=== PATIENT | female | born 1985 | race Caucasian/White ===

== ENCOUNTER 2021-12-11 14:56 | Outpatient (CLI) | payer MEDICAID | END 2021-12-11 14:57 | disposition critical access hospital (66) | LOC: EMS 14:56 | DX: T40.411A Poisoning by fentanyl or fentanyl analogs, accidental (unintentional), initial encounter (principal) | CPT/HCPCS: A0425; A0429; A0999 ==

== ENCOUNTER 2021-12-11 15:16 | Observation (INO) | payer MEDICAID ==
--- NOTE | 2021-12-11 15:25 | ED Physician Documentation ---
PD HPI ALTERED MENTAL STATUS - Stated complaint Stated Complaint: OD - History obtained from History obtained from: Patient, EMS - History of Present Illness Timing - onset: How many hours ago (1), Today Timing - duration: Other (The patient's roommate found her on the floor poorly responsive and hypoventilating with snoring sounds. EMS was called. There was a sales representative womens health with tinfoil next to her. She did improve with Narcan on route but still somnolent.) Timing - details: Abrupt onset Quality / character: Unresponsive (with decreased/snoring type breathing.) Associated symptoms: No: Headache, Cough, NVD Contributing factors: Substance abuse (initially was not stating what she took, but then stated she "thought it was fentanyl" but has used before without overdose. Denies intentional overdose.). No: Anticoagulated, Diabetic Basline status: Alert and oriented X 3, Ambulatory Treatment STOVE TENDER: Narcan (with moderate improvement to point of conversant but drowsy on arrival.) Similar symptoms before: Has not had sx before Review of Systems Unable to obtain: AMS, Confused Cardiac: denies: Chest pain / pressure GI: reports: Abdominal Pain (upper). denies: Vomiting Neurologic: denies: Focal weakness, Headache, Head injury PD PAST MEDICAL HISTORY - Past Medical History Cardiovascular: None Respiratory: None Endocrine/Autoimmune: None - Allergies Allergies/Adverse Reactions: Allergies Allergy/AdvReac Type Severity Reaction Status Date / Time No Known Drug Allergies Allergy Verified 12/11/21 15:28 - Social History Does the pt have substance abuse?: Yes Substance Use and Type: Marijuana, Other (fentanyl) PD ED PE NORMAL - Vitals Vital signs reviewed: Yes - General General: Well developed/nourished (but somewhat discheveled on arrival. ). No: Alert and oriented X 3 (person , confused about place, not aware of the time. ) - HEENT HEENT: Atraumatic, Pharynx benign. No: Moist mucous membranes - Neck Neck: Supple, no meningeal sign, No adenopathy - Cardiac Cardiac: No murmur. No: RRR (regular but tachycardic) - Respiratory Respiratory: No respiratory distress, Clear bilaterally - Abdomen Abdomen: Soft, Non tender, Non distended. No: Normal bowel sounds (diminished) - Derm Derm: Normal color, No rash, Other (multiple small skin sores on face, arms without purulence nor abscess. Consider staph infections.) - Extremities Extremities: Normal ROM s pain, No edema, No calf tenderness / cord - Neuro Neuro: No motor deficit, No sensory deficit Eye Opening: To Voice Motor: Localizes to Pain Verbal: Confused GCS Score: 12 Results - Vitals Vitals: Vital Signs - 24 hr 12/11/21 12/11/21 12/11/21 15:20 15:28 15:58 Temperature 36.8 C 36.6 C Heart Rate 113 H 110 H Respiratory 23 20 Rate Blood Pressure 153/104 H 140/90 H O2 Saturation 87 L 94 94 If not protocol 2 2 : Oxygen Flow, liters/minute 12/11/21 12/11/21 12/11/21 16:28 16:30 17:00 Temperature Heart Rate 106 H 90 100 Respiratory 18 16 22 Rate Blood Pressure 130/100 H 130/90 H 132/88 H O2 Saturation 92 98 92 If not protocol 4 4 4 : Oxygen Flow, liters/minute Oxygen O2 Source Nasal cannula Oxygen Flow Rate 2 - Labs Labs: Laboratory Tests 12/11/21 12/11/21 12/11/21 15:53 15:53 15:53 WBC 20.9 H RBC 4.61 Hgb 14.0 Hct 44.0 MCV 95.4 MCH 30.4 MCHC 31.8 L RDW 13.5 Plt Count 238 MPV 8.5 Neut # (Auto) Not Reportable Lymph # (Auto) Not Reportable [place] # (Auto) Not Reportable Eos # (Auto) Not Reportable Baso # (Auto) Not Reportable Absolute Nucleated RBC Not Reportable Total Counted 100 Band Neuts % (Manual) 0 Abnorm Lymph % (Manual) 0 Nucleated RBC % Not Reportable Neutrophils # (Manual) 18.6 H Lymphocytes # (Manual) 2.1 Monocytes # (Manual) 0.2 Eosinophils # (Manual) 0.0 Basophils # (Manual) 0.0 Differential Comment MANUAL DIFFERENTIAL Platelet Estimate NORMAL (130-450,000) Platelet Morphology NORMAL APPEARANCE RBC Morph Micro Appear NORMAL APPEARANCE Sodium 139 Potassium 4.6 Chloride 102 Carbon Dioxide 27 Anion Gap 10.0 BUN 24 H Creatinine 1.2 H Estimated GFR (MDRD) 50 L Glucose 105 H Calcium 9.4 Total Bilirubin 0.5 AST 188 H ALT 156 H Alkaline Phosphatase 115 Total Protein 7.6 Albumin 4.0 Globulin 3.6 Albumin/Globulin Ratio 1.1 Lipase 36 TSH 1.03 Ethyl Alcohol < 5.0 PD MEDICAL DECISION MAKING - ED course Complexity details: re-evaluated patient (patient improves with Narcan but then drowsy and trending lower sats to low 90s when wearing off. Repeat doses x 2 with good effect but then needed to start drip to maintain awakeness. Clearly not heroin as lasting too long. Presumed fentanyl but still lasting long. Concern would be for longer med. ), considered differential, d/w patient Departure - Departure Disposition: ED Place in Observation Clinical Impression: Opioid overdose Qualifiers: Encounter type: initial encounter Injury intent: accidental or unintentional Qualified Code(s): T40.2X1A - Poisoning by other opioids, accidental (unintentional), initial encounter Altered mental status Qualifiers: Altered mental status type: coma Coma depth: unspecified coma depth Qualified Code(s): R40.20 - Unspecified coma Condition: Stable Record reviewed to determine appropriate education?: Yes Discharge Date/Time: 12/11/21 17:47
[2021-12-11] MEDS ORDERED: NALOXONE HCL NASAL SPRAY KIT NAS STA ×2 (15:38→16:54)
[2021-12-11] MEDS ORDERED: NALOXONE 0.4 MG/ML VIAL SUBQ STA (15:40)
[2021-12-11 15:59] LABS: BASOPHILS % (AUTO) 0.3 %; LYMPHOCYTES % (AUTO) 5.5 %; MEAN CORPUSCULAR HEMOGLOBIN 30.4 pg (27.0-31.0); MEAN CORPUSCULAR HGB CONC 31.8 g/dL (32.0-36.0); MEAN CORPUSCULAR VOLUME 95.4 fL (81.0-99.0); MEAN PLATELET VOLUME 8.5 fL (7.9-10.8); MONOCYTES % (AUTO) 5.9 %; NEUTROPHILS % (AUTO) 87.3 %; PLT - PLATELET COUNT 238 10^3/uL (130-450); RED BLOOD COUNT 4.61 10^6/uL (4.20-5.40); RED CELL DISTRIBUTION WIDTH 13.5 % (12.0-15.0); WHITE BLOOD COUNT 20.9 x10^3/uL (4.8-10.8)
[2021-12-11 16:03] LABS: ABNORMAL LYMPHS % (MANUAL) 0 %; BAND NEUTROPHILS % (MANUAL) 0 %
--- NOTE | 2021-12-11 16:03 | XRAY Report ---
PROCEDURE: Chest 1 View X-Ray INDICATIONS: dyspnea TECHNIQUE: One view of the chest was acquired. COMPARISON: None. FINDINGS: Surgical changes and devices: None. Lungs and pleura: No pleural effusions or pneumothorax. Lungs are clear. Mediastinum: Mediastinal contours appear normal. Heart size is normal. Bones and chest wall: No suspicious bony lesions. Overlying soft tissues appear unremarkable. IMPRESSION: No acute cardiopulmonary pathology. Reviewed by: Myron Beltran MD on 12/11/2021 4:02 PM PDT Approved by: Myron Beltran MD on 12/11/2021 4:02 PM PDT Station ID: [id number]
[2021-12-11 16:16] LABS: ALBUMIN/GLOBULIN RATIO 1.1 (1.0-2.2); ALKALINE PHOSPHATASE 115 IU/L (42-121); ALT ALANINE AMINOTRANSFERASE 156 IU/L (10-60); AST ASPARTATE AMINOTRANSFERASE 188 IU/L (10-42); BILIRUBIN,TOTAL 0.5 mg/dL (0.2-1.0); BUN - BLOOD UREA NITROGEN 24 mg/dL (6-20); CALCIUM 9.4 mg/dL (8.5-10.3); CARBON DIOXIDE - CO2 27 mmol/L (21-32); CHLORIDE 102 mmol/L (101-111); CREATININE 1.2 mg/dL (0.4-1.0); ETOH - ETHANOL < 5.0 mg/dL; GFR - MDRD 50 (>89); GLUCOSE 105 mg/dL (70-100); LIPASE 36 U/L (22-51); POTASSIUM 4.6 mmol/L (3.5-5.0); SODIUM 139 mmol/L (135-145); TOTAL PROTEIN 7.6 g/dL (6.7-8.2)
[2021-12-11] MEDS ORDERED: ONDANSETRON 4 MG/2 ML VIAL IVP STA (16:29)
[2021-12-11 16:35] LABS: DIFFERENTIAL COMMENT MANUAL DIFFERENTIAL; LYMPHOCYTES # (MANUAL) 2.1 10^3/uL (1.5-3.5); LYMPHOCYTES % (MANUAL) 10 %; MONOCYTES # (MANUAL) 0.2 10^3/uL (0.0-1.0); NEUTROPHILS # (MANUAL) 18.6 10^3/uL (1.5-6.6); PLATELET ESTIMATE, MANUAL NORMAL (130-450,000) (NORMAL); PLATELET MORPHOLOGY NORMAL APPEARANCE (NORMAL); RBC MORPHOLOGY (MULTIPLE) NORMAL APPEARANCE (NORMAL)
[2021-12-11] MEDS ORDERED: SODIUM CHLORIDE 0.9% 1,000 ML IV STA (16:55)
[2021-12-11] MEDS ORDERED: NALOXONE 2 MG in SODIUM CHLORIDE 0.9% 495 ML IV STA (16:55)
[2021-12-11] MEDS ORDERED: SODIUM CHLORIDE FLUSH 0.9% 10 ML SYRINGE IVP PRN (17:20)
[2021-12-11] MEDS ORDERED: ONDANSETRON ODT 4 MG TABLET TL PRN (17:20)
[2021-12-11] MEDS ORDERED: ONDANSETRON 4 MG/2 ML VIAL IVP PRN (17:20)
[2021-12-11] MEDS ORDERED: ALBUTEROL NEB 2.5 MG/3 ML INH PRN (17:20)
[2021-12-11] MEDS: PANTOPRAZOLE 40 MG TABLET PO SCH (18:19)
[2021-12-11 18:36] LABS: MUDS CUTOFF CONCENTRATIONS CUTOFF CONC BELOW:
--- NOTE | 2021-12-11 18:36 | HISTORY & PHYSICAL EXAMINATION ---
Chief Complaint - Chief Complaint Chief Complaint: Accidental fentanyl overdose History of Present Illness - Admitted From Admitted From:: EMS called to an apartment - History Obtained From Records Reviewed: [facility] History obtained from: Dr. Hernandez Exam Limitations: Patient is still obtunded, sleepy. - History of Present Illness HPI Comment/Other: This patient does respond to voice and touch but does not open her eyes and speech is mumbled, low, and she falls immediately sleep after 1 or 2 words. Minimal history is obtained this way. She tells me that she does not have any medical problems. She has some children but she has lost custody and they do not live with her. She says she does not take any medications on a regular basis. She is unable to tell me what recreational substance she imbibed. I have tried calling the number in her facesheet to speak to Alvarez Morales, her spouse at [phone] at 6:35 PM and left a message. There is no answer at this time. I did ask her if she wanted everything done in case she stops breathing, or her heart stop. She did wake up and look at me in the eyes enough to say "yes I want everything done" before she fell back asleep again Per the ER record: Pt brought in by EMS after being found unresponsive by her roommate. EMS noted tinfoil with an unknown substance and a employee counselor near the pt. Pt later endorsed fentanyl use for abdomen pain to EMS. Police gave 2 of narcan with some effect and EMS gave an additional 2 of narcan. Pt oriented to person. Blood sugar en route was 163. EMS not able to establish IV access. The ER doctor stated that she had Narcan injection with moderate improvement. But then she would fall right back asleep. He was unable to get much more of a meaningful history out of her as I did. He felt that she was not able to be discharged from the emergency room due to her obtundation. Chest x-ray was done with no acute cardiopulmonary pathology. He did not feel a CT of the head needed to be done. BUN was 24 creatinine 1.2. Random glucose 105. AST 188, and ALT 156. CBC had a white cell count of 20.9, hemoglobin 14, hematocrit 44. Platelets of 238.Her toxicology screen is pending, alcohol level less than 5. History - Past Medical History Other Past Medical History: No medical history able to be obtained from this patient Meds/Allgy - Allergies Allergies/Adverse Reactions: Allergies Allergy/AdvReac Type Severity Reaction Status Date / Time No Known Drug Allergies Allergy Verified 12/11/21 15:28 Review of Systems - Other Findings Other Findings: Unable to obtain at this time Prior Level of Functionality: Unknown at this time Exam - Vital Signs Reviewed Vital Signs: Yes Vital Signs: Vital Signs x48h Temp Pulse Resp BP Pulse Ox O2 Flow Rate 12/11/21 18:13 4 12/11/21 17:30 36.5 C 90 24 134/77 H 94 4 12/11/21 17:00 100 22 132/88 H 92 4 12/11/21 16:30 90 16 130/90 H 98 4 12/11/21 16:28 106 H 18 130/100 H 92 4 12/11/21 15:58 36.6 C 110 H 20 140/90 H 94 2 12/11/21 15:28 94 2 12/11/21 15:20 36.8 C 113 H 23 153/104 H 87 L - Physical Exam General Appearance: positive: Other (But does respond to voice, opens eyes, answer a question in one-word answers. Mainly mumbles. Falls asleep immediately) Eyes Bilateral: positive: PERRL, EOMI ENT: positive: Dry mucous membranes, Other (Face covered in excoriations as are forearms.) Neck: negative: No JVD, Stiff neck Respiratory: positive: No respiratory distress, Other (Slow, shallow, unlabored respiration). negative: Wheezes, Rales, Rhonchi Cardiovascular: positive: Regular rate & rhythm Peripheral Pulses: positive: 1+ Abdomen: positive: Non-tender, No organomegaly, Nml bowel sounds, No distention, Other (I pressed deeply and other than mumbling something she does not respond to deep palpation of the belly.) Skin: positive: Warm, Dry, Other (Appears clean, well groomed. Tattoos of forearms. Again pock malhotra excoriations of the face, forearms. None on her legs. No skin breakdown of the buttocks or ischial tuberosities) Extremities: positive: Full ROM, No pedal edema Neurologic/Psychiatric: positive: Slurred/abnml speech, Other (In her sleep she will roll over from side to side. Also reaches for covers when I take them off because she gets cold. Uses her hands to pull them up. Curled over on her right side and knees brought up to flex. She then stretches out her legs, rolls over to the left side.) Conclusion/Plan - Problem List (1) Obtundation Conclusion/Plan: Due to #2. Plan is to place her in observation, hydrate her and wait for her to wake up (2) Opioid overdose Conclusion/Plan: This history is from statement to the ER doctor. It has not been confirmed by talk screen. This will need to be verified. We will continue the Narcan drip. Qualifiers: Encounter type: initial encounter Injury intent: accidental or unintentional Qualified Code(s): T40.2X1A - Poisoning by other opioids, accidental (unintentional), initial encounter (3) Acute kidney injury Conclusion/Plan: Presume this is to decrease p.o. intake in a patient who is sedated and not taking enough in. We will hydrate her, repeat tomorrow. If creatinine continues to rise we will check for rhabdo. Check for obstruction. Will check urinalysis for UTI. (4) Elevated liver enzymes Conclusion/Plan: In a patient with unknown recreational substance abuse. With suspected hepatitis. Check hepatitis panel, check HIV - Lab Results Lab results reviewed: Yes Fish Bones: 12/11/21 15:53 12/11/21 15:53 - Diagnostic Imaging Results Diagnostic Imaging Results: positive: Final report reviewed Diagnostic Imaging Results Comments: Chest x-ray without acute cardiopulmonary pathology Core Measures - Anticipated LOS I expect patient to be DC'd or transferred within 96 hours.: Yes - DVT/VTE - Prophylaxis VTE/DVT Prophylaxis med ordered at admit?: Yes
[2021-12-11 18:39] LABS: BILIRUBIN,URINE NEGATIVE (NEGATIVE); GLUCOSE, URINE (UA) NEGATIVE (NEGATIVE); KETONES,URINE (UA) NEGATIVE (NEGATIVE); LEUKOCYTE ESTERASE, URINE LARGE (NEGATIVE); NITRITE,URINE NEGATIVE (NEGATIVE); OCCULT BLOOD,URINE MODERATE (NEGATIVE); PROTEIN,URINE NEGATIVE (NEGATIVE); UROBILINOGEN,URINE 0.2 (NORMAL) E.U./dL (NORMAL)
[2021-12-11 18:40] LABS: CLARITY,URINE HAZY (CLEAR)
[2021-12-11 18:42] LABS: HCG UR QUAL NEGATIVE
[2021-12-11 18:52] LABS: AMPHETAMINE SCREEN,URINE POSITIVE (NEGATIVE); BACTERIA,URINE Moderate /HPF (None Seen); BARBITURATE SCREEN,UR NEGATIVE (NEGATIVE); BENZODIAZEPINES SCREEN, URINE NEGATIVE (NEGATIVE); COCAINE SCREEN URINE NEGATIVE (NEGATIVE); METHADONE SCREEN, URINE NEGATIVE (NEGATIVE); METHAMPHETAMINES SCREEN, URINE POSITIVE (NEGATIVE); OPIATE SCREEN, URINE NEGATIVE (NEGATIVE); OXYCODONE SCREEN, URINE NEGATIVE (NEGATIVE); PROPOXYPHENE SCREEN, URINE NEGATIVE (NEGATIVE); SQUAMOUS EPITHELIAL CELL,UR FEW Squamous (<= Few); THC CANNABINOID SCREEN, URINE NEGATIVE (NEGATIVE); TRICYCLIC ANTIDEPRESSANT,URINE NEGATIVE (NEGATIVE)
[2021-12-11 19:08] LABS: B. PARAPERTUSSIS- RESP PCR PAN NOT DETECTED; B. PERTUSSIS- RESP PCR PANEL NOT DETECTED; C. PNEUMONIAE- RESP PCR PANEL NOT DETECTED; CORONAVIRUS 229E-RESP PCR NOT DETECTED; CORONAVIRUS HKU1-RESP PCR NOT DETECTED; CORONAVIRUS NL63-RESP PCR NOT DETECTED; CORONAVIRUS OC43-RESP PCR NOT DETECTED; HUMAN METAPNEUMOVIRUS NOT DETECTED; INFLUENZA A- RESP PCR PANEL NOT DETECTED; INFLUENZA B - RESP PCR PANEL NOT DETECTED; M. PNEUMONIAE- RESP PCR PANEL NOT DETECTED; PARAINFLUENZA VIRUS 1 NOT DETECTED; PARAINFLUENZA VIRUS 2 NOT DETECTED; PARAINFLUENZA VIRUS 3 NOT DETECTED; PARAINFLUENZA VIRUS 4 NOT DETECTED; RHINOVIRUS/ENTEROVIRUS NOT DETECTED; RSV- RESP PCR PANEL NOT DETECTED; SARS-CoV-2 -RESP PCR PANEL NOT DETECTED
[2021-12-11] MEDS: ACETAMINOPHEN 325 MG TABLET PO PRN (21:22)
[2021-12-11] MEDS: NALOXONE 2 MG in SODIUM CHLORIDE 0.9% 495 ML IV SCH (23:18)
[2021-12-12] MEDS: SODIUM CHLORIDE FLUSH 0.9% 10 ML SYRINGE IVP SCH ×3 (01:06→16:35)
[2021-12-12] MEDS: NALOXONE 2 MG in SODIUM CHLORIDE 0.9% 495 ML IV SCH ×2 (04:47→09:58)
[2021-12-12] MEDS: ACETAMINOPHEN 325 MG TABLET PO PRN ×2 (04:47→17:02)
[2021-12-12 05:06] LABS: BASOPHILS % (AUTO) 0.1 %; EOSINOPHILS % (AUTO) 0.1 %; HCT - HEMATOCRIT 38.1 % (37.0-47.0); HGB - HEMOGLOBIN 12.5 g/dL (12.0-16.0); LYMPHOCYTES # (AUTO) 1.7 10^3/uL (1.5-3.5); LYMPHOCYTES % (AUTO) 12.8 %; MEAN CORPUSCULAR HEMOGLOBIN 30.4 pg (27.0-31.0); MEAN CORPUSCULAR HGB CONC 32.8 g/dL (32.0-36.0); MEAN CORPUSCULAR VOLUME 92.7 fL (81.0-99.0); MEAN PLATELET VOLUME 9.4 fL (7.9-10.8); MONOCYTES # (AUTO) 1.1 10^3/uL (0.0-1.0); MONOCYTES % (AUTO) 7.9 %; NEUTROPHILS # (AUTO) 10.6 10^3/uL (1.5-6.6); NEUTROPHILS % (AUTO) 78.8 %; PLT - PLATELET COUNT 232 10^3/uL (130-450); RED BLOOD COUNT 4.11 10^6/uL (4.20-5.40); RED CELL DISTRIBUTION WIDTH 13.3 % (12.0-15.0); WHITE BLOOD COUNT 13.5 x10^3/uL (4.8-10.8)
[2021-12-12 05:08] LABS: CALCIUM, IONIZED 1.13 mmol/L (1.15-1.33); VBG PH 7.426 (7.31-7.41)
[2021-12-12 05:21] LABS: ALBUMIN 3.7 g/dL (3.2-5.5); ALBUMIN/GLOBULIN RATIO 1.2 (1.0-2.2); BILIRUBIN,TOTAL 0.4 mg/dL (0.2-1.0); CREATININE 0.7 mg/dL (0.4-1.0); MAGNESIUM 2.3 mg/dL (1.7-2.8); PHOSPHORUS 3.2 mg/dL (2.5-4.6); POTASSIUM 3.8 mmol/L (3.5-5.0); TOTAL PROTEIN 6.8 g/dL (6.7-8.2)
[2021-12-12] MEDS ORDERED: POTASSIUM CHLORIDE 20 MEQ/15 ML UDC PO ONE (06:00)
[2021-12-12] MEDS ORDERED: POTASSIUM CHLORIDE 20 MEQ TABLET PO ONE (06:09)
[2021-12-12] MEDS: PANTOPRAZOLE 40 MG TABLET PO SCH (06:50)
[2021-12-12] MEDS ORDERED: ENOXAPARIN 40 MG/0.4 ML SYRINGE SUBQ SCH (09:00)
--- NOTE | 2021-12-12 10:34 | Discharge Plan ---
Discharge Plan Problem Reviewed?: Yes Disposition: 02 Transfer Acute Care Hosp Condition: Stable Diet: Regular Activity Restrictions: Activity as Tolerated Shower Restrictions: No Health Concerns: You were hospitalized because you were nearly comatose from something you used, and needed a medication given in an IV continuous drip, to awaken you. At your request for drug rehab, our Song Lyricist has arranged for you to be hospitalized at [facility], and you are being transferred there. No Smoking: If you smoke, Please STOP! Call for help.
[2021-12-12] MEDS: LORazepam 1 MG TABLET PO PRN ×2 (14:27→14:53)
[2021-12-12] MEDS ORDERED: NICOTINE 14 MG PATCH TOP SCH (15:06)
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
[2021-12-12 20:21] VITALS: BP 168/95
[2021-12-13 04:08] LABS: HBsAG SCREEN Negative (Negative); HCV AB <0.1 s/co ratio (0.0-0.9); HEPATITIS B CORE IGM AB Negative (Negative)
[2021-12-13 07:10] LABS: HIV SCREEN 4TH GENERATION Non Reactive (Non Reactive)
[2021-12-13 17:08] LABS: ANTI-DNA (DS) AB QN 1 IU/mL (0-9); CENTROMERE B ANTIBODIES <0.2 AI (0.0-0.9); CHROMATIN ANTIBODIES <0.2 AI (0.0-0.9); JO-1 AB <0.2 AI (0.0-0.9); RIBOSOMAL P ANTIBODIES <0.2 AI (0.0-0.9); RNP ANTIBODIES <0.2 AI (0.0-0.9); SCLERODERMA-70 ANTIBODIES <0.2 AI (0.0-0.9); SJOGREN'S ANTI-SS-A <0.2 AI (0.0-0.9); SJOGREN'S ANTI-SS-B <0.2 AI (0.0-0.9); SMITH ANTIBODIES <0.2 AI (0.0-0.9); SMITH/RNP ANTIBODIES <0.2 AI (0.0-0.9)
== END 2021-12-12 20:25 | disposition short-term general hospital (02) ==
LOC: EDSEX → ED 15:16 → ICU 17:20
PROVIDERS: ADMIT Specialist; ATTEND Internal Medicine
DX: T40.2X1A Poisoning by other opioids, accidental (unintentional), initial encounter (principal); R40.20 Unspecified coma; N17.9 Acute kidney failure, unspecified; R74.01 Elevation of levels of liver transaminase levels; Z20.822 Contact with and (suspected) exposure to COVID-19; Z72.0 Tobacco use
CPT/HCPCS: 36415; 71045; 80053; 80306; 80320; 81001; 81025; 82330; 83690; 83735; 84100; 84132; 84443; 85025; 86225; 86235; 86705; 86709; 86803; 87086; 87150; 87340; 87389; 87633; 96365; 96366; 96368; 96375; 99285; A9270; G0378; G2215; J8499; 81003